=== PATIENT | female | born 1965 | race Caucasian/White ===

== ENCOUNTER 2017-02-08 11:11 | Emergency (ER) | payer MEDICAID, OTHER ==
[~2017-02-08] VITALS: Ht 154.9 cm; Wt 59.7 kg
[2017-02-08 11:15] VITALS: BP 114/80
[2017-02-08] MEDS ORDERED: KETOROLAC 30 MG/1 ML ONE (11:58)
[2017-02-08] MEDS ORDERED: KETOROLAC 30 MG/1 ML IM ONE (12:00)
[2017-02-08] MEDS ORDERED: METH5TAB12 PO (12:11)
[2017-02-08] MEDS ORDERED: DULO30CA2 PO (12:11)
== END 2017-02-08 12:49 | disposition home or self-care (01) ==
LOC: ED 12:41
DX: G89.29 Other chronic pain (principal); M25.511 Pain in right shoulder
CPT/HCPCS: 73030; 96372; 99284; J1885

== ENCOUNTER 2020-10-22 11:34 | Emergency (ER) | payer MEDICAID, OTHER ==
[~2020-10-22] VITALS: Ht 154.9 cm; Wt 60.0 kg
[~2020-10-22 11:34] MED LIST: DULO30CA2 PO; METH5TAB12 PO
[2020-10-22 12:33] LABS: BASOPHILS % (AUTO) 1 % (0-1); EOSINOPHILS % (AUTO) 1 % (1-7); LYMPHOCYTES % (AUTO) 37 % (22-44); MEAN CORPUSCULAR HEMOGLOBIN 30.4 pg (27.0-34.8); MEAN CORPUSCULAR HGB CONC 33.3 g/dL (32.4-35.8); MONOCYTES % (AUTO) 11 % (2-9); NEUTROPHILS % (AUTO) 51 % (42-75); PLATELET COUNT 260 x10^3/uL (130-400); RED BLOOD COUNT 4.36 x10^6/uL (3.82-5.3); RED CELL DISTRIBUTION WIDTH 13.5 % (9.6-15.2)
[2020-10-22 12:35] LABS: MD NO
[2020-10-22 12:44] LABS: ALBUMIN 3.8 g/dL (3.4-5.0); CHLORIDE 107 mmol/L (98-107); CREATININE 0.69 mg/dL (0.55-1.02)
[2020-10-22 12:49] LABS: TROPONIN I < 0.015 ng/mL (0.000-0.045)
--- NOTE | 2020-10-22 12:52 | NUR ---
preceptor RN note: pt presents to ED with anxiety and palpitations x 1 month. dishtank operator in place throughout ED stay, remains sinus elder/sinus tach rate 50-60s with no ectopy. pt a&o, resps even and unlabored, nadn. awaiting labs and dispo.
[2020-10-22 12:54] LABS: ANION GAP 7 mmol/L (5-15)
[2020-10-22 13:32] VITALS: BP 134/56
--- NOTE | 2020-10-22 13:39 | NUR ---
PT A&O, RESPS EVEN AND UNLABORED, NSR, NADN. ALL MONITORS ATTACHED. DISCHARGE ORDERS RECIEVED.
--- NOTE | 2020-10-22 13:48 | NUR ---
DISCHARGE INSTRUCTIONS REVIEWED, PT EDUCATED ON RETURN CRITERIA AND FOLLOW-UP. AMBULATORY TO DISCHARGE DESK WITH STEADY GAIT.
== END 2020-10-22 13:52 | disposition home or self-care (01) ==
LOC: ED 13:37
DX: R00.2 Palpitations (principal); R07.89 Other chest pain; R42 Dizziness and giddiness; Z87.891 Personal history of nicotine dependence
CPT/HCPCS: 36415; 80048; 82040; 83735; 84443; 84484; 85025; 93005; 99284